=== PATIENT | male | born 1985 | race Caucasian/White ===

== ENCOUNTER 2017-11-12 07:18 | Emergency (ER) | payer BC, OTHER ==
[~2017-11-12] VITALS: Ht 182.9 cm; Wt 103.1 kg
[~2017-11-12 07:18] MED LIST: PERC5TAB12 PO
[2017-11-12 07:22] VITALS: BP 120/85; PULSE 82; RESP 16; TEMP 97.7; O2SAT 96
--- NOTE | 2017-11-12 07:42 | PD ---
HPI . Ankle injury Chief Complaint: Injury Time Seen by Provider: 07:27 Travel History International Travel<30 days: No Contact w/Intl Traveler<30days: No Traveled to known affect area: No History of Present Illness HPI Patient presents with chief complaint of right ankle injury. Onset was one week ago. He states that he was horsing around with someone and twisted it. He treated it with RICE with initial improvement in his symptoms. However, symptoms worsened last night. He decided today that it was time to come in and get an x-ray. Pain is mild and rated at 3-5/10. PFSH Past Medical History Cancer: No Cardiovascular Problems: No Diabetes: No Diminished Hearing: No Endocrine: No Gastrointestinal Disorders: Yes (OCCASIONAL HEARTBURN) Genitourinary: No Hepatitis: No Hiatal Hernia: No Immune Disorder: No Musculoskeletal: Yes (SLIGHT CARPAL TUNNEL LIU WRISTS) Neurologic: No Psychiatric: No Reproductive: No Respiratory: No Immunizations Current: No Thyroid Disease: No Tetanus Vaccination: < 5 Years Past Surgical History AICD: No Joint Replacement: No Pacemaker: No Social History Alcohol Use: Yes (OCCASIONAL) Tobacco Use: No Substance Use: No Allergies-Medications (Allergen,Severity, Reaction): Coded Allergies: No Known Allergies (Verified Adverse Reaction, Unknown, 11/12/17) Reported Meds & Prescriptions Reported Meds & Active Scripts Active Reported Percocet 5-325 mg (Oxycodone/Acetaminophen) Oxycodone 5/325 Acetaminophen Tab 1- 2 Tab PO Q6H PRN Review of Systems Except as stated in HPI: all other systems reviewed are Neg Musculoskeletal: Positive: Arthralgias, Edema Physical Exam Narrative GENERAL: Awake and alert and in no acute distress. SKIN: Warm and dry. HEAD: Normocephalic/atraumatic. EYES: Pupils are equal. Extraocular movements are intact. NECK: Normal range of motion. RESPIRATORY: Nonlabored respirations. MUSCULOSKELETAL: Right ankle has some visible swelling and bruising. He has no tenderness of the ligamentous structures of the ankle. No tenderness of the medial malleolus. Lateral malleolus is tender. The ankle is stable. He is distally neurovascularly intact. NEUROLOGICAL: Nonfocal. PSYCHIATRIC: Appropriate mood and affect. Data Data Last Documented VS Vital Signs Date Time Temp Pulse Resp B/P (MAP) Pulse Ox O2 Delivery O2 Flow Rate FiO2 11/12/17 07:22 97.7 82 16 120/85 (97) 96 Orders Orders Ankle, Complete (Ixy0tby) (11/12/17 07:30) MDM Medical Decision Making Medical Screen Exam Complete: Yes Emergency Medical Condition: Yes Differential Diagnosis Differential diagnosis of extremity trauma includes but is not limited to fracture, sprain or strain, dislocation, contusion Narrative Course Patient presents for the evaluation of the right ankle injury. He twisted his ankle a week ago. Symptoms initially improved with ice and elevation but started getting worse again last night. He subsequently presents to us today for evaluation. He is tender over the right lateral malleolus. X-rays pending. Last Impressions Ankle X-Ray 11/12/17 0730 Signed Impressions: Service Date/Time: Sunday, November 12, 2017 07:43 - CONCLUSION: 1. No acute fracture or dislocation. 2. Mild soft tissue swelling overlying the lateral malleolus. Chuy Ferrari MD X-ray was independently viewed by me. The patient will be discharged home with reassurance. He states that he does not need anything for pain. Diagnosis Primary Impression: Right ankle sprain Qualified Codes: S93.401A - Sprain of unspecified ligament of right ankle, initial encounter Patient Instructions: Ankle Sprain (DC), General Instructions Disposition: 01 DISCHARGE HOME Condition: Stable Bettina Coy MD Nov 12, 2017 07:42
--- NOTE | 2017-11-12 08:05 | RADRPT ---
EXAM DATE/TIME: 11/12/2017 07:43 [facility] COMPARISON: No previous studies available for comparison. INDICATIONS : Right lateral ankle pain, twisted ankle last week. MEDICAL HISTORY : right fibula fracture SURGICAL HISTORY : None. ENCOUNTER: Initial ACUITY: 1 week PAIN SCORE: 7/10 LOCATION: Right lateral ankle FINDINGS: Three view exam was performed of the right ankle. Old healed distal right fibular fracture. The bony structures are in normal alignment. No evidence of acute fracture, or dislocation. Mild soft tissu e swelling overlying the lateral malleolus. The ankle mortise is intact. No radiopaque foreign mitzi s are seen. Bony mineralization is normal. CONCLUSION: 1. No acute fracture or dislocation. 2. Mild soft tissue swelling overlying the lateral malleolus. Chuy Ferrari MD on November 12, 2017 at 7:55 Board Certified Radiologist. This report was verified electronically.
== END 2017-11-12 08:35 | disposition home or self-care (01) ==
LOC: PHED 07:18
DX: S93.401A Sprain of unspecified ligament of right ankle, initial encounter (principal); X50.1XXA Overexertion from prolonged static or awkward postures, initial encounter
CPT/HCPCS: 73610; 99283